=== PATIENT | male | born 1985 | race Caucasian/White ===

== ENCOUNTER 2019-01-05 17:13 | Emergency (ER) | payer SELFPAY ==
--- NOTE | 2019-01-05 17:23 | ER Report ---
History and Physical Time Seen By MD: 17:23 HPI/ROS CHIEF COMPLAINT: Seizure HISTORY OF PRESENT ILLNESS: This is a 33-year-old male who presents to emergency department for a seizure. Patient states that yesterday while he was at work Wednesday, had a seizure, states he was sitting at his desk and then suddenly remembers people standing around him while he was laying on the ground. He does have a mild headache, unsure if he hit his head on the ground when he fell down, does have posterior scalp pain. He also has upper back muscular pain as well as bilateral leg pain which does seem to be muscular in nature. Patient states that he does drink alcohol almost on a daily basis, has about 3-4 whiskey drinks a night, he states that he's been cutting back on his alcohol consumption however he did drink tonight before. Patient states the last time he had anything to drink was last night. He denies fevers or chills. No nausea or vomiting. No v isual or auditory hallucinations. No shakiness or obvious withdrawal type symptoms. He also states that he has been told that she "has had seizures at night in the past but never during the day". REVIEW OF SYSTEMS: Constitutional: No fever, no chills. Eyes: No discharge. ENT: No sore throat. Cardiovascular: No chest pain, no palpitations. Respiratory: No cough, no shortness of breath. Gastrointestinal: No abdominal pain, no vomiting. Genitourinary: No hematuria. Musculoskeletal: As above. Skin: No rashes. Neurological: No headache. Allergies: Coded Allergies: No Known Drug Allergies (Unverified , 01/05/19) Home Meds No Active Prescriptions or Reported Meds Past Medical/Surgical History Patient has a past medical and surgical history of wisdom tooth extraction, seizures, headaches, alcohol abuse. Reviewed Nurses Notes: Yes Constitutional Vital Sign - Last 24 Hours 01/05/19 01/05/19 01/05/19 01/05/19 17:19 17:22 17:28 17:30 Temp 97.9 Pulse 129 124 Resp 18 B/P (MAP) 128/94 (105) 128/94 117/99 (105) Pulse Ox 90 91 01/05/19 01/05/19 01/05/19 01/05/19 17:43 17:58 18:00 18:13 Pulse 121 224 104 B/P (MAP) 120/83 (95) Pulse Ox 93 89 93 01/05/19 01/05/19 01/05/19 01/05/19 18:28 18:30 18:43 18:58 Pulse 100 95 109 B/P (MAP) 108/89 (95) Pulse Ox 92 93 92 01/05/19 19:00 B/P (MAP) 127/86 (100) Physical Exam General Appearance: The patient is alert, has no immediate need for airway protection and no signs of toxicity. Eyes: Pupils equal and round no pallor or injection. ENT, Mouth: Mucous membranes are moist. Bite whitlock to the left side of the tongue. Respiratory: There are no retractions, lungs are clear to auscultation. Cardiovascular: Regular rate and rhythm. No murmurs, clicks or rubs. Gastrointestinal: Abdomen is soft and non tender, no masses, bowel sounds normal. Neurological: Alert and oriented 4. Moving all extremities. Following all commands. No focal neuro deficits. Skin: Warm and dry, no rashes. Musculoskeletal: Neck is supple non tender. Extremities are nontender, nonswollen and have full range of motion. DIFFERENTIAL DIAGNOSIS: After history and physical exam differential diagnosis was considered for a seizure including but not limited to electrolyte abnormality, alcohol withdrawal, medication noncompliance, head injury, and breakthrough seizure. Medical Decision Making Data Points Result Diagram: 01/05/19180101/05/191801 Laboratory Hematology Test 01/05/19 18:02 Red Blood Count 4.88 M/uL (4.00-5.60) Mean Corpuscular Volume 104.2 fL (80.0-96.0) Mean Corpuscular Hemoglobin 36.1 pg (26.0-33.0) Mean Corpuscular Hemoglobin Concent 34.6 g/dL (32.0-36.0) Red Cell Distribution Width 13.2 % (11.5-14.5) Mean Platelet Volume 9.3 fL (7.2-11.1) Neutrophils (%) (Auto) 72.5 % (39.4-72.5) Lymphocytes (%) (Auto) 14.6 % (17.6-49.6) Monocytes (%) (Auto) 11.5 % (4.1-12.4) Eosinophils (%) (Auto) 0.4 % (0.4-6.7) Basophils (%) (Auto) 1.0 % (0.3-1.4) Nucleated RBC Relative Count (auto) 0.2 /100WBC Neutrophils # (Auto) 5.3 K/uL (2.0-7.4) Lymphocytes # (Auto) 1.1 K/uL (1.3-3.6) Monocytes # (Auto) 0.8 K/uL (0.3-1.0) Eosinophils # (Auto) 0.0 K/uL (0.0-0.5) Basophils # (Auto) 0.1 K/uL (0.0-0.1) Nucleated RBC Absolute Count (auto) 0.01 K/uL Peripheral Blood Smear Yes Y/N Sodium Level 140 mmol/L (137-145) Potassium Level 4.0 mmol/L (3.5-5.0) Chloride Level 95 mmol/L (98-107) Carbon Dioxide Level 30 mmol/L (22-30) Blood Urea Nitrogen 11 mg/dl (9-21) Creatinine 1.10 mg/dl (0.66-1.25) Glomerular Filtration Rate Calc > 60.0 Random Glucose 102 mg/dl (75-110) Calcium Level 10.5 mg/dl (8.4-10.2) Total Bilirubin 1.3 mg/dl (0.2-1.3) Aspartate Amino Transf (AST/SGOT) 470 U/L (0-35) Alanine Aminotransferase (ALT/SGPT) 162 U/L (0-56) Alkaline Phosphatase 94 U/L (0-126) Total Protein 8.8 g/dl (6.3-8.2) Albumin 4.9 g/dl (3.5-5.0) Chemistry Test 01/05/19 18:02 White Blood Count 7.3 k/uL (4.5-11.0) Red Blood Count 4.88 M/uL (4.00-5.60) Hemoglobin 17.6 g/dL (14.0-18.0) Hematocrit 50.9 % (42.0-52.0) Mean Corpuscular Volume 104.2 fL (80.0-96.0) Mean Corpuscular Hemoglobin 36.1 pg (26.0-33.0) Mean Corpuscular Hemoglobin Concent 34.6 g/dL (32.0-36.0) Red Cell Distribution Width 13.2 % (11.5-14.5) Platelet Count 150 K/uL (150-450) Mean Platelet Volume 9.3 fL (7.2-11.1) Neutrophils (%) (Auto) 72.5 % (39.4-72.5) Lymphocytes (%) (Auto) 14.6 % (17.6-49.6) Monocytes (%) (Auto) 11.5 % (4.1-12.4) Eosinophils (%) (Auto) 0.4 % (0.4-6.7) Basophils (%) (Auto) 1.0 % (0.3-1.4) Nucleated RBC Relative Count (auto) 0.2 /100WBC Neutrophils # (Auto) 5.3 K/uL (2.0-7.4) Lymphocytes # (Auto) 1.1 K/uL (1.3-3.6) Monocytes # (Auto) 0.8 K/uL (0.3-1.0) Eosinophils # (Auto) 0.0 K/uL (0.0-0.5) Basophils # (Auto) 0.1 K/uL (0.0-0.1) Nucleated RBC Absolute Count (auto) 0.01 K/uL Peripheral Blood Smear Yes Y/N Glomerular Filtration Rate Calc > 60.0 Calcium Level 10.5 mg/dl (8.4-10.2) Total Bilirubin 1.3 mg/dl (0.2-1.3) Aspartate Amino Transf (AST/SGOT) 470 U/L (0-35) Alanine Aminotransferase (ALT/SGPT) 162 U/L (0-56) Alkaline Phosphatase 94 U/L (0-126) Total Protein 8.8 g/dl (6.3-8.2) Albumin 4.9 g/dl (3.5-5.0) EKG/Imaging Imaging PATIENT NAME: James Foster : 1985 MR: [id number] V: [id number] EXAM DATE: [id number] ORDERING PHYSICIAN: DENIS CERVANTES TECHNOLOGIST: Location: [facility] Patient: James Foster : 1985 Visit/Account:[id number] Date of [facility]: 01/05/2019 EXAMINATION: CT head without IV contrast HISTORY: Seizure yesterday. Hit head. Headache. TECHNIQUE: Axial CT images of the head were obtained from the vertex to the skull base without IV contrast, with coronal and sagittal 2D reconstructed images. One of the following dose optimization techniques was utilized in the performance of this exam: Automated exposure control; adjustment of the mA and/or kV according to the patient's size; or use of an iterative reconstruction technique. Specific details can be referenced in the facility's radiology CT exam operational policy. COMPARISON: None. FINDINGS: There is mild generalized parenchymal volume loss, greater than typical for patient age. The intracranial contents are otherwise unremarkable. No CT evidence of intracranial hemorrhage, mass lesion, or acute infarct. No midline shift or extra-axial fluid collections. Lopez-white differentiation is maintained. Mild mucosal thickening in the maxillary sinuses. The paranasal sinuses and mastoid air cells are otherwise unopacified. The calvarium is intact. IMPRESSION: 1. No CT evidence of acute intracranial pathology. 2. Mild parenchymal volume loss, greater than typical for patient age. 2. Mild inflammatory sinus disease in the maxillary sinuses. Report Dictated By: Eduardo Hines MD at 01/05/2019 7:11 PM Report E-Signed By: Eduardo Hines MD at 01/05/2019 7:20 PM [id number] ED Course/Re-evaluation Clinical Indication for ER IV: Hydration, IV Access ED Course The patient was admitted to room. A history and physical were obtained. Differential diagnoses were considered. IV was started. A CBC, CMP prolactin were obtained. CBC showing MCV 104.2, MCH 36, chemistry showing calcium 10.5, AST 470, ALT 162. Prolactin not available at the time of my dictation. CT of the head negative for any acute pathology however it is showing Mild parenchymal volume loss, greater than typical for patient age. I did review the studies with the patient, I did tell him that his alcohol abuses likely the reason for the elevated liver enzymes and the volume loss in the brain. I did offer him an admission to behavioral health, he declined, he states that he has additional resources that she will follow-up on, I also recommended that he follow up with neurology as was possible for further evaluation of his seizure activity, I recommended if he is going to cut back on drinking to do this systematically and slowly as to prevent further seizures from occurring. I also told him he is not to drive until he follows up with neurology, the patient exposed understanding was discharged home. He was agreeable with this plan of care. Decision to Disposition Date: January 05, 2019 Decision to Disposition Time: 19:39 Depart Departure Latest Vital Signs Vital Signs Date Time Temp Pulse Resp B/P (MAP) Pulse Ox O2 Delivery O2 Flow Rate FiO2 01/05/19 19:00 127/86 (100) 01/05/19 18:58 109 92 01/05/19 17:22 97.9 18 Impression: Primary Impression: Seizure Additional Impressions: Elevated liver enzymes Chronic alcohol use Condition: Improved Disposition: HOME OR SELF-CARE Referrals: ELISEO KEITA MD 2 Weeks New Scripts No Active Prescriptions or Reported Meds Patient Instructions: Alcohol Dependence (ED), Alcohol Use Disorder (ED), Alcohol Withdrawal (ED), Alcoholic Hepatitis (ED), New-Onset Seizure in Adults (ED) Additional Instructions: As your liver enzymes are very elevated, please seek professional help with your alcohol use. The seizures could be related to the use or the withdrawal of alcohol. If you intend to cut back on your drinking alone without help you should do this gradually. Please contact [place] [facility] as soon as possible for reevaluation and further testing on possible seizure disorder. Please establish with a primary care provider within one week too for reevaluation of your blood work. Absolutely no driving until you follow up with neurology, if you drive, have a seizure, you could harm or kill yourself or someone else. Be sure to drink plenty of water. Get plenty of rest. Please return if you change your mind about admission to the behavioral health unit for help with alcohol withdrawal concerns. Return to the ED for any other concerns or worsening symptoms. Problem Qualifiers DENIS CERVANTES TRANSPLANT NURSE PRACTITIONER-BC January 05, 2019 17:23
[2019-01-05] MEDS ORDERED: NS(*) 0.9% 1000 ML BAG 1,000 ML IV ONE (17:40)
[2019-01-05 18:09] LABS: PLATELET COUNT, AUTOMATED 150 K/uL (150-450)
--- NOTE | 2019-01-05 19:23 | RADIOLOGY IMAGING REPORT ---
FACILITY: [facility] PATIENT NAME: James Foster : 1985 MR: [id number] V: [id number] EXAM DATE: ORDERING PHYSICIAN: DENIS CERVANTES TECHNOLOGIST: Location: [facility] [place] Patient: James Foster : 1985 Visit/Account:[id number] Date of [facility]: 01/05/2019 EXAMINATION: CT head without IV contrast HISTORY: Seizure yesterday. Hit head. Headache. TECHNIQUE: Axial CT images of the head were obtained from the vertex to the skull base without IV c ontrast, with coronal and sagittal 2D reconstructed images. One of the following dose optimization techniques was utilized in the performance of this exam: Autom ated exposure control; adjustment of the mA and/or kV according to the patient's size; or use of an i terative reconstruction technique. Specific details can be referenced in the facility's radiology C T exam operational policy. COMPARISON: None. FINDINGS: There is mild generalized parenchymal volume loss, greater than typical for patient age. The intracranial contents are otherwise unremarkable. No CT evidence of intracranial hemorrhage, mass lesion, or acute infarct. No midline shift or extra-axial fluid collections. Lopez-white differentiat ion is maintained. Mild mucosal thickening in the maxillary sinuses. The paranasal sinuses and mastoid air cells are oth erwise unopacified. The calvarium is intact. IMPRESSION: 1. No CT evidence of acute intracranial pathology. 2. Mild parenchymal volume loss, greater than typical for patient age. 2. Mild inflammatory sinus disease in the maxillary sinuses. Report Dictated By: Eduardo Hines MD at 01/05/2019 7:11 PM Report E-Signed By: Eduardo Hines MD at 01/05/2019 7:20 PM [id number]
[2019-01-05 20:00] VITALS: BP 118/87
== END 2019-01-05 20:05 | disposition home or self-care (01) ==
LOC: ER 17:24
DX: G40.909 Epilepsy, unspecified, not intractable, without status epilepticus (principal); R79.89 Other specified abnormal findings of blood chemistry; F10.10 Alcohol abuse, uncomplicated
CPT/HCPCS: 70450; 84146; 85025; 96360; 99283; J7030; 82040; 82247; 82310; 82374; 82435; 82565; 82947; 84075; 84132; 84155; 84295; 84450; 84460; 84520

== ENCOUNTER 2019-03-06 14:39 | Emergency (ER) | payer OTHER ==
--- NOTE | 2019-03-06 14:47 | ER Report ---
History and Physical Time Seen By MD: 14:43 HPI/ROS CHIEF COMPLAINT: Jitteriness, nausea, vomiting HISTORY OF PRESENT ILLNESS: Patient is a 33-year-old male with a 1 pint today whiskey drinking habit here with complaints of nausea, vomiting, shakiness which acutely worsened today. Patient reports that his last alcoholic beverage was yesterday. Patient's alcohol level is 23 today, tox screen was otherwise negative. REVIEW OF SYSTEMS: Constitutional: No fever, no chills. Eyes: No discharge. ENT: No sore throat. Cardiovascular: No chest pain, no palpitations. Respiratory: No cough, no shortness of breath. Gastrointestinal: No abdominal pain, + nausea and vomiting. Genitourinary: No hematuria. Musculoskeletal: No back pain. Skin: No rashes. Neurological: No headache. + tremulousness Allergies: Coded Allergies: No Known Drug Allergies (Unverified , 03/06/19) Home Meds No Active Prescriptions or Reported Meds Hx Alcohol Use: Yes Constitutional Vital Sign - Last 24 Hours 03/06/19 14:46 Temp 98.6 Pulse 137 Resp 22 B/P (MAP) 146/97 Pulse Ox 94 O2 Delivery Room Air Physical Exam General Appearance: The patient is alert, has no immediate need for airway protection and no signs of toxicity. Uncomfortable appearing Eyes: Pupils equal and round no pallor or injection. ENT, Mouth: Mucous membranes are moist. Respiratory: There are no retractions, lungs are clear to auscultation. Cardiovascular: Sinus tachycardia Gastrointestinal: Abdomen is soft and non tender, no masses, bowel sounds normal. Neurological: Tremulousness, alert and oriented, no focal neurological deficits, cranial nerves intact Skin: Warm and dry, no rashes. Musculoskeletal: Neck is supple non tender. Extremities are nontender, nonswollen and have full range of motion. DIFFERENTIAL DIAGNOSIS: After history and physical exam differential diagnosis was considered for alcohol withdrawal, electrolyte abnormality, dehydration Medical Decision Making Data Points Result Diagram: 03/06/19 1427 03/06/19 1427 Laboratory Hematology Test 03/06/19 14:27 White Blood Count 9.3 k/uL (4.5-11.0) Red Blood Count 4.32 M/uL (4.00-5.60) Hemoglobin 15.5 g/dL (14.0-18.0) Hematocrit 43.9 % (42.0-52.0) Mean Corpuscular Volume 101.7 fL (80.0-96.0) H Mean Corpuscular Hemoglobin 35.9 pg (26.0-33.0) H Mean Corpuscular Hemoglobin Concent 35.3 g/dL (32.0-36.0) Red Cell Distribution Width 12.5 % (11.5-14.5) Platelet Count 120 K/uL (150-450) L Mean Platelet Volume 8.4 fL (7.2-11.1) Neutrophils (%) (Auto) 83.4 % (39.4-72.5) H Lymphocytes (%) (Auto) 9.6 % (17.6-49.6) L Monocytes (%) (Auto) 5.9 % (4.1-12.4) Eosinophils (%) (Auto) 0.1 % (0.4-6.7) L Basophils (%) (Auto) 1.0 % (0.3-1.4) Nucleated RBC Relative Count (auto) 0.0 /100WBC Neutrophils # (Auto) 7.7 K/uL (2.0-7.4) H Lymphocytes # (Auto) 0.9 K/uL (1.3-3.6) L Monocytes # (Auto) 0.5 K/uL (0.3-1.0) Eosinophils # (Auto) 0.0 K/uL (0.0-0.5) Basophils # (Auto) 0.1 K/uL (0.0-0.1) Nucleated RBC Absolute Count (auto) 0.00 K/uL Chemistry Test 03/06/19 14:27 Sodium Level 135 mmol/L (137-145) Potassium Level 3.1 mmol/L (3.5-5.0) Chloride Level 93 mmol/L (98-107) Carbon Dioxide Level 20 mmol/L (22-30) Blood Urea Nitrogen 7 mg/dl (9-21) Creatinine 0.80 mg/dl (0.66-1.25) Glomerular Filtration Rate Calc > 60.0 Random Glucose 171 mg/dl (75-110) Calcium Level 9.7 mg/dl (8.4-10.2) Magnesium Level 1.3 mg/dl (1.7-2.2) Total Bilirubin 1.0 mg/dl (0.2-1.3) Aspartate Amino Transf (AST/SGOT) 251 U/L (0-35) Alanine Aminotransferase (ALT/SGPT) 179 U/L (0-56) Alkaline Phosphatase 107 U/L (0-126) Total Protein 8.2 g/dl (6.3-8.2) Albumin 4.7 g/dl (3.5-5.0) Lipase 128 U/L (23-300) Toxicology Test 03/06/19 14:21 03/06/19 14:27 Urine Opiates Screen Negative Urine Barbiturates Screen Negative Ur Tricyclic Antidepressants Screen Negative Urine Phencyclidine Screen Negative Urine Amphetamines Screen Negative Urine Benzodiazepines Screen Negative Urine Cocaine Screen Negative Urine Cannabinoids Screen Negative Salicylates Level < 10 mg/L Salicylate Last Dose Date unknown Acetaminophen Level < 10 ug/ml Serum Alcohol 23 mg/dl Urinalysis Test 03/06/19 14:21 Urine Color Laquita Urine Clarity Slightly-cloudy Urine pH 9.0 pH (4.8-9.5) Urine Specific [place] 1.024 Urine Protein 100 mg/dL (NEGATIVE) Urine Glucose (UA) Negative mg/dL (NEGATIVE) Urine Ketones 80 mg/dL (NEGATIVE) Urine Blood Negative (NEGATIVE) Urine Nitrite Negative (NEGATIVE) Urine Bilirubin Negative (NEGATIVE) Urine Urobilinogen Negative mg/dL (0.2-1.9) Urine Leukocyte Esterase Negative (NEGATIVE) Urine RBC 1 /HPF (0-2/HPF) Urine WBC 5 /HPF (0-5/HPF) Urine Squamous Epithelial Cells Moderate /LPF (</=FEW) Urine Transitional Epithelial Cells Few /LPF (NONE-FEW) Urine Bacteria Negative /HPF (NONE-FEW) Urine Mucus Few /HPF (NONE-FEW) EKG/Imaging EKG Interpretation PATIENT NAME: ADRIENNE NIXON : [id number] MR: [id number] V: [id number] EXAM DATE: ORDERING PHYSICIAN: CIARRA SMILEY TECHNOLOGIST: IDANIA Mills Reason : GI PROB Blood Pressure : / mmHG Vent. Rate : 102 BPM Atrial Rate : 102 BPM P-R Int : 118 ms QRS Dur : 100 ms QT Int : 444 ms P-R-T Axes : 077 064 062 degrees QTc Int : 578 ms Sinus tachycardia with premature atrial complexes with junctional escape complexes Otherwise normal ECG Referred By: BALJIT Confirmed By: ED Course/Re-evaluation ED Course Patient is a 33-year-old male here with complaints of tremulousness, nausea, vomiting without abdominal pain in the setting of chronic alcohol use. Patient reports prior history of alcohol withdrawal seizure however patient has not tried to detox in the past. Patient does report that he has been nauseated, unable to keep down food or fluids. He was notably tachycardic at time of evaluation, EKG confirmed sinus tachycardia. Patient responded well to a banana bag, milligram of Ativan. 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 I discussed the patient with Dr. Carver who accepted the patient to behavioral services for further treatment and care. Patient was hemodynamically stable at time of admission. Decision to Disposition Date: Mar 06, 2019 Decision to Disposition Time: 16:12 Depart Departure Latest Vital Signs Vital Signs Date Time Temp Pulse Resp B/P (MAP) Pulse Ox O2 Delivery O2 Flow Rate FiO2 03/06/19 14:46 98.6 137 22 146/97 94 Room Air Impression: Primary Impression: Chronic alcohol use Additional Impression: Alcohol withdrawal Condition: Improved Disposition: XFER TO [facility] New Scripts No Active Prescriptions or Reported Meds Problem Qualifiers CIARRA SMILEY DO Mar 06, 2019 14:47
[2019-03-06] MEDS ORDERED: THIAMINE HCL(*) 200 MG/2 ML IN 100 MG, FOLIC ACID(*) 50 MG/10 ML INJ 1 MG, MULTIVITAMIN... IV ONE ×2 (14:59→15:10)
[2019-03-06] MEDS ORDERED: LORazepam 2 MG/ML VIAL IVP ONE (15:00)
[2019-03-06 15:09] LABS: PLATELET COUNT, AUTOMATED 120 K/uL (150-450)
--- NOTE | 2019-03-06 15:14 | EKG ---
FACILITY: PATIENT NAME: ADRIENNE NIXON : [id number] MR: [id number] V: [id number] EXAM DATE: ORDERING PHYSICIAN: CIARRA SMILEY TECHNOLOGIST: IDANIA Mills Reason : GI PROB Blood Pressure : / mmHG Vent. Rate : 102 BPM Atrial Rate : 102 BPM P-R Int : 118 ms QRS Dur : 100 ms QT Int : 444 ms P-R-T Axes : 077 064 062 degrees QTc Int : 578 ms Sinus tachycardia with premature atrial complexes Otherwise normal ECG Confirmed by Layo Moreno ([id number] on 03/07/2019 12:38:41 AM Referred By: BALJIT Confirmed By:Layo Kurtz
[2019-03-06] MEDS ORDERED: NS(*) 0.9% 1000 ML BAG 1,000 ML IV ONE (15:55)
[2019-03-06 16:00] VITALS: BP 137/82
[2019-03-07] MEDS ORDERED: NALT50TA15 PO (16:26)
== END 2019-03-06 17:17 ==
LOC: ER 14:48
DX: F10.230 Alcohol dependence with withdrawal, uncomplicated (principal); Y90.1 Blood alcohol level of 20-39 mg/100 ml
CPT/HCPCS: 80305; 80320; 80329; 81001; 83690; 83735; 84443; 85025; 96365; 96375; 99284; J2060; J3411; J3475; J7030; 82040; 82247; 82310; 82374; 82435; 82565; 82947; 84075; 84132; 84155; 84295; 84450; 84460; 84520; 93005

== ENCOUNTER 2019-03-06 16:54 | Inpatient (IN) | payer OTHER ==
[2019-03-06] MEDS ORDERED: MAG HYD/AL HYD/SIMETH 30ML UDC PO PRN (17:20)
[2019-03-06 17:30] VITALS: BP 145/89
[2019-03-06 18:01] VITALS: BP 145/89
[2019-03-06] MEDS: DIAZEPAM 10 MG TAB PO PRN ×2 (18:09→20:30)
[2019-03-06] MEDS: NICOTINE POLACRILEX 4 MG LOZG PO PRN (19:30)
[2019-03-06 20:17] VITALS: BP 134/80
[2019-03-07] MEDS: DIAZEPAM 10 MG TAB PO PRN ×3 (03:36→22:09)
[2019-03-07 03:45] VITALS: BP 126/84
[2019-03-07] MEDS: FOLIC ACID 1 MG TAB PO SCH (08:11)
[2019-03-07] MEDS: THIAMINE HCL 100 MG TAB PO SCH (08:11)
[2019-03-07] MEDS: MULTIVITAMINS TAB PO SCH (08:11)
[2019-03-07 08:40] VITALS: BP 128/92
[2019-03-07 14:05] VITALS: BP 122/88
[2019-03-07] MEDS ORDERED: NALT50TA15 PO (16:26)
[2019-03-07] MEDS: NICOTINE POLACRILEX 4 MG LOZG PO PRN (17:28)
[2019-03-07 18:05] VITALS: BP 144/90
--- NOTE | 2019-03-07 21:37 | SCHAAF H&P ---
DATE OF ADMISSION: March 06, 2019 ATTENDING PHYSICIAN Wilber Carver MD Patient was seen approximately 1000 hours on 07 March 2019 for note concerning this dictation. PRESENTING PROBLEM/CHIEF COMPLAINT "Alcohol withdrawal." HISTORY OF PRESENT ILLNESS This is a very pleasant 33-year-old male who was admitted voluntarily for management of alcohol withdrawal. Patient known to be in the Emergency Room on one other occasion here at [facility] in late December 2018 following a seizure after he had stopped drinking alcohol for about two days. Patient reports vomiting at friend's house. They encouraged him to come to the Emergency Room. Patient reports he had been clean for a month after his seizure from alcohol in late December, then had started a binge over three weeks ago. Patient easily recognizes that alcohol is a problem in his life and denies any other symptoms such as depression or any other illnesses other than depressive symptoms when he feels guilty when he has relapsed and starts drinking. Patient adamantly denying any suicidal thoughts. 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 MENTAL HEALTH HISTORY Patient has never been an inpatient in a psychiatric facility, never been an inpatient for any other alcohol-related problems. Patient has been to AA in the past. He has previously been on naltrexone, Prozac, Lexapro, and maybe had been given low-dose benzodiazepine from outpatient provider in the past to help with alcohol taper as well. Patient reports overall when he drinks, he stops taking medications. This he knows is probably not helpful as well. Patient currently seeing an outpatient therapist at the [facility]. Has seen Vernell Recio in the past for medications. Patient has not had any suicide attempts or suicidal ideation in his life. FAMILY PSYCHIATRIC HISTORY Notable for his father "who drank himself to ." Patient's father also used drugs. Patient is unsure of which kind. There are no other suicides in the family and no other psychiatric history in genetic relatives. Patient does report his one older brother drinks a lot of beer, but is not to the degree of alcoholism that he has. PAST MEDICAL HISTORY The patient has had an incidence of one seizure following alcohol withdrawal in late December of this year. He reports being healthy overall. No allergies. SOCIAL HISTORY Patient was born in [place] Parents were at time of his . They when he was age 7 or 8. Patient denies any history of emotional, physical, or sexual abuse or neglect growing up. States he continued to be raised by his single mother after his father left the home. Patient reports having one older brother. He is a high school graduate, working on a PhD. He already has attained his masters in zoology, and patient is working for approximately one more year to get his PhD in ecology. He works at the [employer] as well. He has never . He has no significant other currently. He has no children. He lives alone in an apartment. LEGAL HISTORY Patient has no legal history. SUBSTANCE ABUSE HISTORY Patient reports heavier alcohol use started in his early 20s, and he recognized that he was suffering from alcohol use disorder in his late 20s. Patient denies any other history of drug use. PHYSICAL EXAMINATION Please see emergency room note. Notable for: GENERAL: Very cooperative 33-year-old male. No medical distress. VITAL SIGNS: At time of admission, temperature 98.6, pulse 137, respiratory rate 22, blood pressure 146/97, and pulse oximetry 94% on room air. LABORATORY DATA CBC notable for MCV and MCH elevated at 101.7 and 35.9, platelet count low at 120. Chemistry panel notable for potassium 3.1 and low, random glucose elevated at 171 upon admission, AST elevated at 251, ALT elevated at 179. TSH 0.77. Lipase within normal limits. Urinalysis notable for urine ketones present and urine protein present. Toxicology screen negative for substances of abuse with a serum alcohol level of 23 upon admission. MENTAL STATUS EXAMINATION GENERAL APPEARANCE, BEHAVIOR, AND ATTITUDE: Very pleasant, cooperative 33-year-old male, appears to be an accurate historian. Patient making good eye contact. No periods of tearfulness. No bizarre mannerisms or tics. SPEECH: Within normal limits. Regular rate, rhythm, volume, and tone. MOOD: Described as frustrated with alcohol relapses at times. AFFECT: Minimally constricted, overall mood congruent. THOUGHT PROCESSES: Logical, goal directed. No loose associations or flight of ideas. THOUGHT CONTENT: Free of auditory or visual hallucinations, ideas of reference, thought broadcastings, delusions, obsessions, compulsions. Patient adamantly denying suicidal or homicidal ideations. SENSORIUM: Clear. COGNITION: Alert and oriented to person, place, time, and situation. MEMORY: Immediate, recent, and remote estimated intact. INTELLIGENCE: Average based on interview. INSIGHT AND JUDGMENT: Considered grossly intact in the absence of alcohol use. Patient presenting voluntarily for help. ASSESSMENT Very pleasant 33-year-old male who outside of some mild substance-induced mood disorder symptoms, patient denies any other psychiatric concerns with the exception of ongoing alcohol use disorder. At this time, will treat alcohol withdrawal to completion with CIWA protocol and diazepam and will continue to educate patient on ways to abstain upon departure. DIAGNOSES 1. Alcohol withdrawal. 2. Alcohol use disorder, severe. 3. Alcohol-induced mood disorder. 4. Social stressors relating to ongoing alcohol use. PLAN 1. Admit to the unit. 2. Necessary precautions will be implemented. 3. Patient will participate in individual and group therapy. 4. Medications will be administered and titrated accordingly. 5. Will treat alcohol withdrawal per [facility] protocol with diazepam. 6. Will get fasting lipid panel in this patient, who also has a genetic medical history significant for heart attack at a young age in male members. 7. Estimated length of stay three to five days. MTDD
[2019-03-07 22:01] VITALS: BP 130/90
[2019-03-08 06:07] VITALS: BP 123/68
[2019-03-08] MEDS: MULTIVITAMINS TAB PO SCH (08:01)
[2019-03-08] MEDS: FOLIC ACID 1 MG TAB PO SCH (08:01)
[2019-03-08] MEDS: THIAMINE HCL 100 MG TAB PO SCH (08:01)
[2019-03-08 10:32] VITALS: BP 124/65
[2019-03-08] MEDS ORDERED: FOLI-68 PO (14:08)
[2019-03-08] MEDS ORDERED: MULT-1379 PO (14:08)
[2019-03-08] MEDS ORDERED: THIA100T2 PO (14:09)
[2019-03-08] MEDS ORDERED: TRAZ150T8 PO (14:10)
[2019-03-08] MEDS ORDERED: NICO4LOZ35 BC (14:10)
--- NOTE | 2019-03-09 13:19 | SCHAAF DISCHARGE ---
DATE OF ADMISSION: March 06, 2019 DATE OF DISCHARGE: March 08, 2019 ATTENDING PHYSICIAN Wilber Carver MD Patient was seen at approximately 1100 hours on March 08, 2019 for note concerning this dictation. FINAL DIAGNOSES 1. Alcohol use disorder, moderate to severe. 2. Alcohol induced mood disorder, symptoms resolved. REASON FOR ADMISSION Please see H and P for full details. This is an overall generally well- functioning 33-year-old male who suffers from longstanding alcohol use disorder. Patient has periods of sobriety throughout his adult life. Patient recently trying to stop alcohol use on his own again, becoming ill. Patient notably had a seizure in late December 2018. He is worried this would return. Patient checked himself in for help with alcohol withdrawal. Alcohol withdrawal was treated to completion with diazepam via [facility] protocol and was considered moderate in nature. Patient's mood quickly improved in the absence of alcohol. He took a very active role in his treatment and appeared to be an overall very polite, cooperative and was an accurate historian. No parasuicidal behaviors were seen. Patient denying any other concerns. Patient discharged to home. PHYSICAL EXAMINATION Please see emergency room note. Notable for pleasant, 33-year old male in active alcohol withdrawal at time of admission. Temperature 98.7, pulse 137, respiratory rate 22, blood pressure 146/97 and pulse oximetry 94% on room air at time of admission. At the time of discharge from Behavioral Health Unit: Temperature 98.1, pulse 76, respiratory rate 16, blood pressure 124/65 and pulse oximetry 96% on room air. LABORATORY DATA Lipid panel was unremarkable overall in this patient who has a family history of early myocardial infarction. CBC upon admission notable for MCV elevated at 101.7, MCH 35.9 and elevated platelet count low at 120 upon admission. Chemistry panel notable for potassium low at 3.1, sodium low at 135, random glucose elevated at 171, magnesium 1.3 and low, AST 251 and ALT 179 upon admission. Lipase within normal limits. TSH 0.77. Toxicology screen was negative overall with serum alcohol level at 23. Urine ketones present with urine protein in the urine as well. Otherwise, unremarkable UA. MENTAL STATUS EXAMINATION GENERAL APPEARANCE, BEHAVIOR AND ATTITUDE: This is a polite, cooperative 33-year-old making good eye contact. No periods of tearfulness. No bizarre mannerisms or tics. SPEECH: Within normal limits. Regular rate, rhythm, volume and tone. MOOD: Described as good. AFFECT: Full and mood-congruent. THOUGHT PROCESSES: Logical and goal-directed, no loose associations or flight of ideas. THOUGHT CONTENT: Free of auditory or visual hallucinations, ideas of reference, thought broadcastings, delusions, obsessions or compulsions. Patient adamantly denying suicidal or homicidal ideation. SENSORIUM: Clear. COGNITION: Alert and oriented to person, place, time and situation. MEMORY: Immediate, recent and remote was estimated intact. INTELLIGENCE: Average, based on interview. INSIGHT AND JUDGMENT: Considered grossly intact in the absence of alcohol use. RESULTS OF TESTING Imaging: None. Laboratory data: See above. CONSULTATIONS None. TREATMENT Patient received medications, participated in individual and group therapy. HOSPITAL COURSE Patient's alcohol withdrawal was treated to completion via [facility] protocol with diazepam, considered moderate in nature. Patient quickly improved. Patient took an active role in his treatment and was started on trazodone 50 to 150 mg p.o. q.h.s. to help with any sleep disturbance or anxiety secondary to absence of alcohol use disorder. CONDITION OF PATIENT ON DISCHARGE Stable. Considered a minimal risk in the absence of alcohol use. DISPOSITION Patient was discharged to home. He is to followup with outpatient treatment as scheduled. He is to abstain from all alcohol use. Avoid any Tylenol or acetaminophen containing products. He was given the Crisis Line should symptoms return. Medications at time of discharge include trazodone 50 to 150 mg p.o. q.h.s. p.r.n. for insomnia. Patient will continue [id number] folic acid, [id number] vitamin B1 as well and multivitamin [id number] and could continue [id number] smoking cessation aid. Patient would have a complete metabolic panel done prior to restarting naltrexone in two weeks. Patient had naltrexone from outpatient prescription prior to admission. The risks, benefits and alternatives of the above discharge plan were discussed. Informed consent was given to proceed with the above discharge plan by this competent patient. BELEN
== END 2019-03-08 17:05 | disposition home or self-care (01) | DRG 897 ==
LOC: BHS 16:54
PROVIDERS: ADMIT Psychiatry & Neurology Psychiatry; ATTEND Psychiatry & Neurology Psychiatry
DX: F10.230 Alcohol dependence with withdrawal, uncomplicated (principal); F10.24 Alcohol dependence with alcohol-induced mood disorder; Y90.1 Blood alcohol level of 20-39 mg/100 ml
CPT/HCPCS: 36415; 82465; 83718; 84478